=== PATIENT | male | born 1950 | race Caucasian/White ===

== ENCOUNTER 2017-08-06 02:16 | Emergency (ER) | payer MEDICARE ==
[~2017-08-06] VITALS: Ht 177.8 cm; Wt 97.7 kg
[2017-08-06] MEDS ORDERED: COUMADIN4 MG PO (02:30)
[2017-08-06] MEDS ORDERED: COUMADIN2 MG PO (02:30)
[2017-08-06 03:52] VITALS: BP 110/64
== END 2017-08-06 03:55 | disposition home or self-care (01) ==
LOC: ED 02:16
DX: S01.111A Laceration without foreign body of right eyelid and periocular area, initial encounter (principal); S50.311A Abrasion of right elbow, initial encounter; S80.211A Abrasion, right knee, initial encounter; E13.22 Other specified diabetes mellitus with diabetic chronic kidney disease; N18.6 End stage renal disease; Z99.2 Dependence on renal dialysis; I25.2 Old myocardial infarction; W10.9XXA Fall (on) (from) unspecified stairs and steps, initial encounter; Y92.009 Unspecified place in unspecified non-institutional (private) residence as the place of occurrence of the external cause; Z79.01 Long term (current) use of anticoagulants; Z95.0 Presence of cardiac pacemaker; Z95.5 Presence of coronary angioplasty implant and graft